=== PATIENT | female | born 1985 | race Caucasian/White ===

== ENCOUNTER 2016-10-24 11:55 | Emergency (ER) | payer BC ==
[~2016-10-24] VITALS: Ht 170.2 cm; Wt 54.5 kg
[~2016-10-24 11:55] MED LIST: DICL75 PO; TRAM50 PO
[2016-10-24 12:01] VITALS: BP 97/71; PULSE 110; RESP 19; TEMP 98.2; O2SAT 99
[2016-10-24] MEDS ORDERED: ADDE20 PO (12:24)
[2016-10-24] MEDS ORDERED: ZOLO50TA PO (12:24)
[2016-10-24 12:25] LABS: BLOOD, URINE NEG (NEG); GLUCOSE,URINE NEG (NEG); KETONE, URINE NEG (NEG)
[2016-10-24 12:26] LABS: NITRITE,URINE POS (NEG)
[2016-10-24] MEDS ORDERED: SODIUM CHLOR 0.9% 1000 ML INJ 1,000 ML IV SCH (12:27)
[2016-10-24 12:28] LABS: METHOD OF COLLECTION CLEAN CATCH; URINE COLOR YELLOW (YELLW/STRAW)
[2016-10-24 12:29] LABS: BACTERIA, URINE MANY /hpf; COMMENT (UR) CULTURE INDICATED; CULTURE IF INDICATED CULTURE INDICATED; SQUAMOUS EPITHELIAL CELL URINE > 8 /hpf (0-5)
[2016-10-24] MEDS ORDERED: ONDANSETRON HCL 4 MG/2 ML VIAL IVP ONE (12:30)
[2016-10-24] MEDS ORDERED: SODIUM CHLORIDE 0.9% FLUSH 10 ML FLUSH IV FLUSH PRN (12:30)
[2016-10-24] MEDS ORDERED: MORPHINE SULFATE 4 MG/ML INJ IV PUSH ONE (12:30)
[2016-10-24 12:35] VITALS: O2SAT 100
[2016-10-24 12:41] VITALS: BP 100/59; PULSE 89; RESP 16; O2SAT 100
--- NOTE | 2016-10-24 12:43 | PD ---
HPI Chief Complaint: Back/ Neck Pain or Injury Time Seen by Provider: 12:22 Travel History International Travel<30 days: No Contact w/Intl Traveler<30days: No Traveled to known affect area: No History of Present Illness HPI 31-year-old female here for evaluation of right flank pain, generalized malaise , nausea, and vomiting. Symptoms started today. Pain described as an ache. She denies urinary symptoms. Emesis is clear. Normal bowel movement this morning. No vaginal bleeding or discharge. History of bilateral tubal ligation. No other abdominal surgeries. [facility] Past Medical History Medical History: Denies Significant Hx Diminished Hearing: No Integumentary: Yes (IMPETIGO ON RIGHT EARLOBE AND LEFT KNEE) Immunizations Current: Yes ?: Unknown LMP: OVER ONE MONTH : 3 Para: 3 Miscarriage: 0 : 0 Tubal Ligation: Yes (2009) Social History Alcohol Use: Yes () Tobacco Use: No Substance Use: No Allergies-Medications (Allergen,Severity, Reaction): Coded Allergies: No Known Allergies (Unverified , 10/24/16) Reported Meds & Prescriptions Reported Meds & Active Scripts Active Reported Adderall (Amphetamine-Dextroamphetamine) 20 Mg Tab 20 Mg PO BID Avoid late evening doses. Space doses at least 4 to 6 hours if more than once/day dosing. Zoloft (Sertraline HCl) 50 Mg Tab 50 Mg PO DAILY Review of Systems Except as stated in HPI: all other systems reviewed are Neg Physical Exam Narrative GENERAL: Well-developed, well-nourished, no acute distress SKIN: Focused skin assessment warm/dry. No rashes. HEAD: Atraumatic. Normocephalic. EYES: Pupils equal and round. No scleral icterus. No injection or drainage. ENT: Mucous membranes pink and moist. Bilateral cerumen impaction. NECK: Trachea midline. No JVD. CARDIOVASCULAR: Regular rate and rhythm. No murmur appreciated. RESPIRATORY: No accessory muscle use. Clear to auscultation. Breath sounds equal bilaterally. GASTROINTESTINAL: Abdomen soft, mild diffuse tenderness, nondistended. No peritoneal signs. Normal bowel sounds. MUSCULOSKELETAL: No obvious deformities. No clubbing. No cyanosis. No edema. Mild right CVA tenderness. No left CVA tenderness. No midline vertebral step- off or tenderness. NEUROLOGICAL: Awake and alert. No obvious cranial nerve deficits. Motor grossly within normal limits. Normal speech. PSYCHIATRIC: Appropriate mood and affect; insight and judgment normal. Data Data Last Documented VS Vital Signs Date Time Temp Pulse Resp B/P Pulse Ox O2 Delivery O2 Flow Rate FiO2 10/24/16 12:41 89 16 100/59 100 10/24/16 12:35 Room Air 10/24/16 12:01 98.2 Orders Urinalysis - C+S If Indicated (10/24/16 12:10) Ed Urine Pregnancytest Poc (10/24/16 12:10) Complete Blood Count With Diff (10/24/16 12:27) Comprehensive Metabolic Panel (10/24/16 12:27) Lipase (10/24/16 12:27) Prothrombin Time / Inr (Pt) (10/24/16 12:27) Act Partial Throm Time (Ptt) (10/24/16 12:27) Ct Abd/Pel W Iv Contrast(Rout) (10/24/16 12:27) Iv Access Insert/Monitor (10/24/16 12:27) Ecg Monitoring (10/24/16 12:27) Oximetry (10/24/16 12:27) Morphine Inj (Morphine Inj) (10/24/16 12:30) Ondansetron Inj (Zofran Inj) (10/24/16 12:30) Sodium Chlor 0.9% 1000 Ml Inj (Ns 1000 M (10/24/16 12:27) Sodium Chloride 0.9% Flush (Ns Flush) (10/24/16 12:30) Urine Culture (10/24/16 12:10) Ceftriaxone Inj (Rocephin Inj) (10/24/16 12:45) Influenzae A/B Antigen (10/24/16 12:43) Ketorolac Inj (Toradol Inj) (10/24/16 13:15) Iohexol 350 Inj (Omnipaque 350 Inj) (10/24/16 14:34) Ear Irrigation (10/24/16 15:21) Labs Laboratory Tests Test 10/24/16 10/24/16 12:10 12:30 Urine Collection Type CLEAN CATCH Urine Color YELLOW Urine Turbidity SLIGHT Urine pH 6.0 Urine Specific [place] 1.025 Urine Protein NEG mg/dL Urine Glucose (UA) NEG mg/dL Urine Ketones NEG mg/dL Urine Occult Blood NEG Urine Nitrite POS Urine Bilirubin NEG Urine Leukocyte Esterase NEG Urine WBC 3-5 /hpf Urine Squamous Epithelial > 8 /hpf Cells Urine Amorphous Sediment FEW Urine Bacteria MANY /hpf Microscopic Urinalysis Comment CULTURE INDICATED Urine Collection Time 1210 White Blood Count 10.0 TH/MM3 Red Blood Count 4.26 MIL/MM3 Hemoglobin 13.7 GM/DL Hematocrit 39.5 % Mean Corpuscular Volume 92.7 FL Mean Corpuscular Hemoglobin 32.2 PG Mean Corpuscular Hemoglobin 34.7 % Concent Red Cell Distribution Width 12.0 % Platelet Count 145 TH/MM3 Mean Platelet Volume 9.3 FL Neutrophils (%) (Auto) 89.3 % Lymphocytes (%) (Auto) 4.4 % Monocytes (%) (Auto) 2.5 % Eosinophils (%) (Auto) 1.8 % Basophils (%) (Auto) 2.0 % Neutrophils # (Auto) 9.0 TH/MM3 Lymphocytes # (Auto) 0.4 TH/MM3 Monocytes # (Auto) 0.2 TH/MM3 Eosinophils # (Auto) 0.2 TH/MM3 Basophils # (Auto) 0.2 TH/MM3 CBC Comment DIFF FINAL Differential Comment Prothrombin Time 11.4 SEC Prothromb Time International 1.0 RATIO Ratio Activated Partial 28.4 SEC Thromboplast Time Sodium Level 143 MEQ/L Potassium Level 3.9 MEQ/L Chloride Level 109 MEQ/L Carbon Dioxide Level 23.8 MEQ/L Anion Gap 10 MEQ/L Blood Urea Nitrogen 22 MG/DL Creatinine 0.89 MG/DL Estimat Glomerular Filtration 75 ML/MIN Rate Random Glucose 95 MG/DL Calcium Level 8.3 MG/DL Total Bilirubin 0.6 MG/DL Aspartate Amino Transf 18 U/L (AST/SGOT) Alanine Aminotransferase 23 U/L (ALT/SGPT) Alkaline Phosphatase 42 U/L Total Protein 7.4 GM/DL Albumin 4.0 GM/DL Lipase 214 U/L [facility] Medical Decision Making Medical Screen Exam Complete: Yes Emergency Medical Condition: Yes Differential Diagnosis Pyelonephritis, nephrolithiasis, ureterolithiasis, cholecystitis, influenza Narrative Course Initial vital signs showed a heart rate of 110 which improved to 89 after a liter of normal saline IV, blood pressure 100/59, pulse ox 100% on room air, oral temp of 98.2F. CBC shows WBC 10, hemoglobin 13.7, hematocrit 39.5, platelets 145. Neutrophils 89%. CMP is unremarkable. Lipase is 214. UA is positive for nitrites, with many bacteria. Influenza is negative. CT abdomen pelvis: CONCLUSION: 1. Mild hepatic steatosis. 2. Transitional vertebral body at the lumbosacral junction. 3. No acute findings identified in the abdomen and pelvis. Patient was made aware of all findings. She is feeling a lot better after receiving pain medication. Her bilateral cerumen impaction was irrigated by my cost recovery technician. She was given a dose of IV Rocephin for pyelonephritis and will be discharged home with a prescription for Bactrim. PMD follow-up this week. She was informed on when to return to the emergency department. She verbalizes understanding and agreement with plan. Diagnosis Primary Impression: Pyelonephritis Additional Impressions: Hepatic steatosis Impacted cerumen of both ears Referrals: Primary Care Physician 3 days Additional Instructions: Take antibiotic as prescribed. Follow-up with a primary care physician this week. Return to the emergency department for worsening symptoms or any other concerns. Scripts Tramadol 50 Mg Tab50 Mg PO Q6H PRN (PAIN) #15 TAB Ref 0 Prov:Rodney Daley MD 10/24/16 Sulfamethoxazole-Trimethoprim (Bactrim DS)800-160 Mg Tab1 Tab PO BID #14 TAB Ref 0 Prov:Rodney Daley MD 10/24/16 Disposition: 01 DISCHARGE HOME Condition: Stable Rodney Daley MD Oct 24, 2016 12:42
[2016-10-24] MEDS ORDERED: cefTRIAXone INJ 1,000 MG in SODIUM CHLORIDE 0.9% INJ 100 ML IV ONE (12:45)
[2016-10-24 12:46] LABS: BASOPHIL # 0.2 TH/MM3 (0-0.2); EOSINOPHIL # 0.2 TH/MM3 (0-0.4); EOSINOPHIL % 1.8 % (0.0-4.0); HEMATOCRIT 39.5 % (35.0-46.0); HEMO FLAGS DIFF FINAL; LYMPH % 4.4 % (9.0-44.0); LYMPHOCYTE # 0.4 TH/MM3 (1.0-4.8); MEAN CELL VOLUME 92.7 FL (80.0-100.0); MEAN CORPUSCULAR HEMOGLOBIN 32.2 PG (27.0-34.0); MEAN CORPUSCULAR HGB CONC 34.7 % (32.0-36.0); MONO % 2.5 % (0.0-8.0); NEUT % 89.3 % (16.0-70.0); PLATELET COUNT 145 TH/MM3 (150-450); RED BLOOD COUNT 4.26 MIL/MM3 (4.00-5.30)
[2016-10-24 12:51] LABS: CHLORIDE 109 MEQ/L (98-107); POTASSIUM 3.9 MEQ/L (3.5-5.1); SODIUM (NA) 143 MEQ/L (136-145)
[2016-10-24 12:56] LABS: ANION GAP 10 MEQ/L (5-15); APTT (PATIENT) 28.4 SEC (24.3-30.1); BICARBONATE 23.8 MEQ/L (21.0-32.0); BLOOD UREA NITROGEN 22 MG/DL (7-18); PROTHROMBIN TIME - PATIENT 11.4 SEC (9.8-11.6)
[2016-10-24 12:58] LABS: ALT (GPT) 23 U/L (10-53); AST (GOT) 18 U/L (15-37); GLOMERULAR FILTRATION RATE 75 ML/MIN (>89)
[2016-10-24 13:00] LABS: TOTAL BILIRUBIN ADULT 0.6 MG/DL (0.2-1.0)
[2016-10-24 13:01] LABS: ALKALINE PHOSPHATASE 42 U/L (45-117)
[2016-10-24] MEDS ORDERED: KETOROLAC TROMETHAMINE 30 MG/ML (IVP) VIAL IV PUSH ONE (13:15)
[2016-10-24] MEDS ORDERED: IOHEXOL 350 MG/ML 10 ML VIAL (for RAD DIAG) IV ONE (14:34)
--- NOTE | 2016-10-24 15:08 | RADHPO ---
EXAM DATE/TIME: 10/24/2016 14:25 [place] COMPARISON: No previous studies available for comparison. INDICATIONS : Non specific abdominal pain. IV CONTRAST: 90 cc Omnipaque 350 (iohexol) IV ORAL CONTRAST: No oral contrast ingested. RADIATION DOSE: 4.91 CTDIvol (mGy) MEDICAL HISTORY : None SURGICAL HISTORY : Tubal ligation. ENCOUNTER: Initial ACUITY: 1 day PAIN SCALE: 4/10 LOCATION: abdomen TECHNIQUE: Volumetric scanning of the abdomen and pelvis was performed. Using automated exposure control and ad justment of the mA and/or kV according to patient size, radiation dose was kept as low as reasonably achievable to obtain optimal diagnostic quality images. FINDINGS: LOWER LUNGS: The visualized lower lungs are clear. LIVER: Mild diffuse hypodensity of the liver indicating mild hepatic steatosis. Gallbladder within normal li mits. SPLEEN: Normal size without lesion. PANCREAS: Within normal limits. KIDNEYS: Normal in size and shape. There is no mass, stone or hydronephrosis. ADRENAL GLANDS: Within normal limits. VASCULAR: There is no aortic aneurysm. BOWEL/MESENTERY: No evidence of bowel dilatation. No free air or free fluid. Appendix within normal limits. ABDOMINAL WALL: Within normal limits. RETROPERITONEUM: There is no lymphadenopathy. BLADDER: No wall thickening or mass. REPRODUCTIVE: Within normal limits. INGUINAL: There is no lymphadenopathy or hernia. MUSCULOSKELETAL: Transitional vertebral body at the lumbosacral junction. Mild degenerative type changes on the right at this level. CONCLUSION: 1. Mild hepatic steatosis. 2. Transitional vertebral body at the lumbosacral junction. 3. No acute findings identified in the abdomen and pelvis. Chencho Mixon MD on October 24, 2016 at 15:02 Board Certified Radiologist. This report was verified electronically.
[2016-10-24] MEDS ORDERED: TRAM50TA PO (15:27)
[2016-10-24] MEDS ORDERED: BACT800T5 PO (15:27)
[2016-10-24 16:23] VITALS: BP 93/60
== END 2016-10-24 16:34 | disposition home or self-care (01) ==
LOC: PHED 11:55
DX: N12 Tubulo-interstitial nephritis, not specified as acute or chronic (principal); K76.0 Fatty (change of) liver, not elsewhere classified; H61.23 Impacted cerumen, bilateral; B96.20 Unspecified Escherichia coli [E. coli] as the cause of diseases classified elsewhere
CPT/HCPCS: 74177; 80053; 81001; 83690; 84703; 85025; 85610; 85730; 87077; 87086; 87186; 87804; 96361; 96374; 96375; 99284; J0696; J1885; J2270; J2405; J7030; Q9967